=== PATIENT | male | born 1970 | race Native Hawaiian/Other Pacific Islander ===

== ENCOUNTER 2021-09-18 09:55 | Emergency (ER) | payer OTHER ==
[~2021-09-18] VITALS: Ht 182.9 cm; Wt 86.2 kg
[2021-09-18 10:00] VITALS: TEMP 97.3
[2021-09-18 10:19] LABS: PLATELET COUNT 224 K/uL (142-355)
[2021-09-18 10:27] LABS: POTASSIUM 4.2 mmol/L (3.6-5.2)
[2021-09-18 10:37] LABS: PARTIAL THROMBOPLASTIN TIME 30.6 SECONDS (24.5-33.6)
[2021-09-18 11:00] VITALS: BP 136/82
== END 2021-09-18 11:20 | disposition still patient (30) ==
LOC: ED 09:55
PROVIDERS: Hospitalist
DX: N18.9 Chronic kidney disease, unspecified (principal); Z53.29 Procedure and treatment not carried out because of patient's decision for other reasons
CPT/HCPCS: 36415; 80053; 80320; 82550; 83880; 84484; 85027; 85610; 85730; 93005; 99284

== ENCOUNTER 2021-09-22 13:41 | Emergency (ER) | payer OTHER ==
[~2021-09-22] VITALS: Ht 182.9 cm; Wt 86.2 kg
[2021-09-22 15:09] LABS: PLATELET COUNT 231 K/uL (142-355)
[2021-09-22 15:27] LABS: POTASSIUM 4.3 mmol/L (3.6-5.2)
[2021-09-22 20:00] VITALS: BP 128/75; TEMP 98
== END 2021-09-22 20:03 | disposition home or self-care (01) ==
LOC: ED 13:41
PROVIDERS: Family Medicine
DX: E11.649 Type 2 diabetes mellitus with hypoglycemia without coma (principal); Z79.4 Long term (current) use of insulin
CPT/HCPCS: 36415; 80053; 81002; 82150; 82550; 82948; 83690; 85027; 96374; 99284; J7060

== ENCOUNTER 2021-10-16 09:17 | Emergency (ER) | payer OTHER ==
[~2021-10-16] VITALS: Ht 182.9 cm; Wt 83.9 kg
[2021-10-16 10:28] LABS: PLATELET COUNT 206 K/uL (142-355)
[2021-10-16 10:37] LABS: POTASSIUM 4.1 mmol/L (3.6-5.2)
[2021-10-16 12:15] VITALS: TEMP 97.9
[2021-10-16 13:43] VITALS: BP 103/65
== END 2021-10-16 14:45 | disposition home or self-care (01) ==
LOC: ED 09:17
PROVIDERS: Emergency Medicine Emergency Medical Services
DX: H83.03 Labyrinthitis, bilateral (principal); I10 Essential (primary) hypertension; Z91.14 Patient's other noncompliance with medication regimen; E11.9 Type 2 diabetes mellitus without complications; I25.10 Atherosclerotic heart disease of native coronary artery without angina pectoris; Z95.1 Presence of aortocoronary bypass graft; R42 Dizziness and giddiness
CPT/HCPCS: 80053; 81000; 81002; 83735; 84484; 85027; 93005; 96360; 96374; 96376; 99284; J0360; J2405

== ENCOUNTER 2021-11-01 09:46 | Outpatient (CLI) | payer OTHER | END 2021-11-01 19:12 | disposition home or self-care (01) | LOC: RAD 09:46 | PROVIDERS: ATTEND Nurse Practitioner Family | DX: E10.22 Type 1 diabetes mellitus with diabetic chronic kidney disease (principal); L98.8 Other specified disorders of the skin and subcutaneous tissue; S81.801A Unspecified open wound, right lower leg, initial encounter; N18.32 Chronic kidney disease, stage 3b; R42 Dizziness and giddiness; I12.9 Hypertensive chronic kidney disease with stage 1 through stage 4 chronic kidney disease, or unspecified chronic kidney disease; Y92.89 Other specified places as the place of occurrence of the external cause ==

== ENCOUNTER 2021-12-24 12:58 | Outpatient (CLI) | payer OTHER ==
[2021-12-24 13:30] LABS: PLATELET COUNT 275 K/uL (142-355)
[2021-12-24 13:50] LABS: POTASSIUM 3.9 mmol/L (3.6-5.2)
== END 2021-12-24 20:02 | disposition home or self-care (01) ==
LOC: LABW 12:58
PROVIDERS: ATTEND Internal Medicine
DX: N18.32 Chronic kidney disease, stage 3b (principal); R53.83 Other fatigue
CPT/HCPCS: 36415; 80053; 81002; 82043; 82306; 82330; 82570; 82607; 82728; 82746; 83036; 83540; 83550; 83735; 83970; 84100; 84156; 84439; 84443; 85027; 85652; 86038; 86140

== ENCOUNTER 2022-01-24 11:00 | Outpatient (CLI) | payer OTHER ==
[2022-01-24 11:23] LABS: PLATELET COUNT 260 K/uL (142-355)
[2022-01-24 11:49] LABS: POTASSIUM 3.8 mmol/L (3.6-5.2)
== END 2022-01-24 18:58 | disposition home or self-care (01) ==
LOC: LABW 11:00
PROVIDERS: ATTEND Internal Medicine
DX: N18.32 Chronic kidney disease, stage 3b (principal); R53.83 Other fatigue; R79.89 Other specified abnormal findings of blood chemistry
CPT/HCPCS: 36415; 80053; 81002; 82043; 82306; 82330; 82570; 82607; 82728; 82746; 83036; 83540; 83550; 83735; 83970; 84100; 84156; 84439; 84443; 85027; 85652; 86038; 86140

== ENCOUNTER 2022-05-02 10:18 | Outpatient (CLI) | payer OTHER | END 2022-05-02 20:55 | disposition home or self-care (01) | LOC: RESP 10:18 | PROVIDERS: ATTEND Internal Medicine Cardiovascular Disease | DX: R07.89 Other chest pain (principal); I10 Essential (primary) hypertension ==

== ENCOUNTER 2022-05-07 08:11 | Outpatient (CLI) | payer OTHER ==
[~2022-05-07] VITALS: Ht 177.8 cm; Wt 79.4 kg
== END 2022-05-07 19:17 | disposition home or self-care (01) ==
LOC: NM 08:11
PROVIDERS: ATTEND Internal Medicine Cardiovascular Disease
DX: R07.89 Other chest pain (principal); I10 Essential (primary) hypertension
CPT/HCPCS: A9500; J2785